=== PATIENT | female | born 1990 | race Caucasian/White ===

== ENCOUNTER 2016-12-30 09:50 | Emergency (ER) | payer OTHER ==
--- NOTE | 2016-12-30 15:21 | RADRPT ---
EXAM DATE/TIME: 12/30/2016 11:19 [place] COMPARISON: No previous studies available for comparison. INDICATIONS : Right calf and lower leg pain. MEDICAL HISTORY : Right calf and lower leg pain. SURGICAL HISTORY : Right leg vein stripping. ENCOUNTER: Initial ACUITY: 1 day PAIN SCORE: 2/10 LOCATION: Right leg. TECHNIQUE: Venous ultrasound of the leg was performed from the inguinal ligament to the proximal calf. Real-demian e, color Doppler and spectral tracing, compression and augmentation techniques were used. FINDINGS: There is normal compressibility of the deep venous system from the inguinal region to the proximal ca lf. No echogenic clot is seen in the lumen of the common femoral, femoral, popliteal, and posterior tibial veins. There is a normal response of the venous system to proximal and distal augmentation an d respiration. CONCLUSION: No DVT right leg. Steve Gonzalez MD on December 30, 2016 at 11:41 Board Certified Radiologist. This report was verified electronically.
--- NOTE | 2016-12-30 18:14 | EP ---
cc: LUKE DARBY MD HISTORY OF PRESENT ILLNESS: The patient is a young female patient presenting to the emergency room with right calf pain that started while she was driving. She states that she had sudden pain in the calf and it radiated up her leg and has been hurting her with movement. She states that it is now 5/10. She has had history of previous spider vein removal in that leg and is concerned that this could be a DVT. She states that she was anxious and had some initial shortness of breath but denies any current shortness of breath or chest pains. She is currently on control. PHYSICAL EXAMINATION: GENERAL: On physical exam, she is well-appearing and currently in no acute distress. PULMONARY: Unremarkable. CARDIAC: Unremarkable. LUNGS: Clear to auscultation bilaterally without wheezing or rhonchi. HEART: S1-S2 with no murmurs, rubs or gallops. ABDOMEN: Abdomen soft and nontender to palpation. NEUROLOGIC: The patient is neurologically intact, awake, alert, oriented x3 ambulating in the emergency room without issues. EXTREMITIES: Her exam of the extremities shows no signs of cyanosis or edema and her right leg there is mild tenderness to palpation of the anterior myers with a small amount of ecchymosis or edema measuring around 2 cm with no underlying bony tenderness or other bony deformities. Initial evaluation was impression of possible DVT versus thrombosed spider vein versus varicose veins versus strain. Ultrasound and Basic metabolic panel was ordered. Basic metabolic panel ordered to rule out electrolyte abnormalities. The patient refused to get electrolyte panel or blood work done at this time. Ultrasound was done, which shows no signs of DVT. At this point, I do not see any signs of significant acute DVT or other acute emergency, although an electrolyte abnormality cannot be ruled out in this case. I suspect considering the story that this is more likely to be a strain or a spasm. PLAN: My plan would be to give her ibuprofen if needed [id number] with follow up with primary care physician. Return for any new issues as needed. The patient stated understanding although she states that she wanted to find out exactly what was going on. I have explained to the patient that I do not see any signs of significant acute emergency at this point, no signs of an acute fracture, no signs of an acute DVT. The patient's vital signs are stable with apparently normal saturations. I do not suspect other acute processes at this point, although electrolyte abnormalities and other metabolic issues cannot be ruled out without further lab work. The patient states understanding and at this point, she is relieved. Luke DIAZ /12:43 PM /6:05 PM
== END 2016-12-30 12:15 | disposition home or self-care (01) ==
LOC: PHED 09:50
DX: M79.661 Pain in right lower leg (principal)
CPT/HCPCS: 93971; 99284